=== PATIENT | female | born 2000 | race Caucasian/White ===

== ENCOUNTER 2024-08-05 06:36 | Emergency (ER) | payer OTHER ==
[~2024-08-05] VITALS: Ht 162.6 cm; Wt 104.3 kg
[2024-08-05 06:42] VITALS: BP 130/82; PULSE 79; RESP 16; TEMP 97.8; O2SAT 100
[2024-08-05 08:25] LABS: BASOPHILS % (AUTO) 0.4 % (0.0-2.0); EOSINOPHILS # (AUTO) 0.2 K/uL (0-0.4); EOSINOPHILS % (AUTO) 1.8 % (0.0-4.0); HEMATOCRIT 38.8 % (36-48); HEMOGLOBIN 12.5 g/dL (12.0-16.0); LYMPHOCYTES # (AUTO) 2.1 K/uL (2.5-16.5); LYMPHOCYTES % (AUTO) 21.2 % (20.5-51.1); MEAN CORPUSCULAR HEMOGLOBIN 25 pg (27-31); MEAN CORPUSCULAR HGB CONC 32 g/dL (33-37); MEAN CORPUSCULAR VOLUME 76.3 fL (80-94); MONOCYTES # (AUTO) 0.5 K/uL (0.8-1.0); MONOCYTES % (AUTO) 4.6 % (1.7-9.3); NEUTROPHILS # (AUTO) 7.1 K/uL (1.8-7.7); PLATELET COUNT (AUTO) 271 K/uL (140-450); RED BLOOD CELL COUNT(AUTO) 5.08 MIL/uL (4.20-5.40); RED CELL DISTRIBUTION WIDTH 16.2 % (11.6-13.7); WHITE BLOOD COUNT (AUTO) 9.8 K/uL (4.8-10.8)
[2024-08-05 08:34] LABS: ANION GAP 8.7 (8-16); CALCIUM 8.6 mg/dL (8.5-10.1); CARBON DIOXIDE 31.4 mmol/L (21-32); CREATININE 0.7 mg/dL (0.6-1.3); POTASSIUM 4.1 mmol/L (3.5-5.1)
[2024-08-05 09:04] VITALS: BP 125/81; PULSE 77; RESP 16; TEMP 97.8; O2SAT 100
== END 2024-08-05 09:04 | disposition home or self-care (01) ==
LOC: MED 06:36
DX: R11.2 Nausea with vomiting, unspecified (principal); R05.9 Cough, unspecified
CPT/HCPCS: 36415; 71045; 80048; 81025; 83690; 85025; 99284; Q0092